=== PATIENT | female | born 1970 | race African-American/Black ===

== ENCOUNTER 2023-05-07 05:02 | Day surgery (SDC) | payer BC ==
[2023-05-05 13:43] VITALS: BMI 33.8
[2023-05-07 10:30] VITALS: TEMP 98.2
[2023-05-07 11:04] VITALS: BP 117/77; PULSE 55; RESP 17
== END 2023-05-07 11:03 | disposition home or self-care (01) ==
LOC: JASU-ENDO 05:02
PROVIDERS: ATTEND Internal Medicine Gastroenterology
PROC: 0DBL8ZX Excision of Transverse Colon, Via Natural or Artificial Opening Endoscopic, Diagnostic (ICD-10-PCS; 2023-05-07)
PROC: 0DBK8ZX Excision of Ascending Colon, Via Natural or Artificial Opening Endoscopic, Diagnostic (ICD-10-PCS; principal; 2023-05-07 10:30)
DX: Z12.11 Encounter for screening for malignant neoplasm of colon (principal); D12.2 Benign neoplasm of ascending colon; D12.3 Benign neoplasm of transverse colon; K64.8 Other hemorrhoids; K57.30 Diverticulosis of large intestine without perforation or abscess without bleeding; Z86.010 Personal history of colon polyps; I10 Essential (primary) hypertension
CPT/HCPCS: 88305-TC